=== PATIENT | female | born 1965 | race Caucasian/White ===

== ENCOUNTER 2020-12-20 19:59 | Emergency (ER) | payer MEDICAID ==
[~2020-12-20] VITALS: Ht 154.9 cm; Wt 78.0 kg
[2020-12-20 20:05] VITALS: BP 155/98
--- NOTE | 2020-12-20 20:55 | NUR ---
Vini cintron in ED - 12/20/20 at 2056 by RUPA PT AMBULATED WITH ASSISTANCE OF WALKER TO ER BED 03
--- NOTE | 2020-12-20 23:30 | NUR ---
SEEN AND EXAMINED BY MARIA R
--- NOTE | 2020-12-20 23:49 | NUR ---
result back and noted by ERMD and for D/C
[2020-12-21 00:10] VITALS: BP 121/78
--- NOTE | 2020-12-21 00:10 | NUR ---
Patient discharged with v/s stable. Written and verbal after care instructions given and explained. Patient verbalized understanding. Ambulatory with steady gait. All questions addressed prior to discharge. Advised to follow up with PMD.
== END 2020-12-21 00:10 | disposition home or self-care (01) ==
LOC: MED 19:59
DX: S60.552A Superficial foreign body of left hand, initial encounter (principal); X58.XXXA Exposure to other specified factors, initial encounter; Y93.89 Activity, other specified; Y92.89 Other specified places as the place of occurrence of the external cause; Y99.8 Other external cause status
CPT/HCPCS: 73130; 99284